=== PATIENT | male | born 1960 | race Hispanic/Latino ===

== ENCOUNTER → 2019-07-12 | Day surgery (SDC) | payer MEDICARE, OTHER ==
--- NOTE | 2019-07-08 15:28 | NUR ---
At time of pre-op appointment when patient was being escorted to lab waiting area. Patient reported dizziness. Wheelchair provided to patient. Offered to patient to go to ER to be checked out. Patient declined at this time. Patient stated he felt better after sitting in the wheelchair.
[2019-07-08 15:40] LABS: BASOPHILS % 0.5 % (0.0-1.0); EOSINOPHILS # (AUTO) 0.1 (0.0-0.4); EOSINOPHILS % 1.4 % (0.0-6.0); HEMATOCRIT 48.7 % (38.2-49.6); HEMOGLOBIN 15.7 g/dL (14.0-18.0); LYMPHOCYTES # (AUTO) 2.8 (1.0-3.2); LYMPHOCYTES % 34.1 % (18.0-39.1); MEAN CORPUSCULAR HEMOGLOBIN 28.8 pg (28-32); MEAN CORPUSCULAR HGB CONC 32.2 g/dL (31-35); MEAN CORPUSCULAR VOLUME 89.2 fL (81-99); MONOCYTES # (AUTO) 0.4 (0.2-0.8); MONOCYTES % 5.3 % (4.4-11.3); NEUTROPHILS # (AUTO) 4.6 (2.1-6.9); NEUTROPHILS % 57.5 % (38.7-80.0); PLATELET COUNT 182 x10e3/uL (140-360); RED BLOOD COUNT 5.46 x10e6/uL (4.3-5.7); RED CELL DISTRIBUTION WIDTH 13.7 % (11.7-14.4)
[2019-07-08 16:00] LABS: ALBUMIN 3.9 g/dL (3.5-5.0); ALBUMIN/GLOBULIN RATIO 1.1 (0.8-2.0); ANION GAP 13.8 mmol/L (8-16); CALCIUM 9.9 mg/dL (8.4-10.2); CREATININE, SERUM 1.27 mg/dL (0.72-1.25); POTASSIUM 4.8 mmol/L (3.5-5.1)
--- NOTE | 2019-07-11 14:30 | NUR ---
Dr. Bergeron notified of creatinine 1.27, eGFR 58 and glucose 365. no new orders at this time.
[2019-07-12] VITALS (13 sets, daily range): BP systolic 102–155; BP diastolic 60–82
[~2019-07-12] VITALS: Ht 180.3 cm; Wt 127.9 kg
[~2019-07-12] MED LIST: ASPIR 8181 MG PO; ASPIRIN 325 MG TAB ONE; BIVALRIUDIN 250 MG/VIAL VIAL IV ONE; BUPROPION HCL100 MG PO; FENTANYL CITRATE/PF 100MCG/2 ML INJ ONE; FLUDROCORTISON0.1 MG PO; GABAPENTIN400 MG PO; HEPARIN SOD (PORCINE) 1000 UNIT/ML 30ML ONE; HEPARIN SOD/SOD CHLORIDE 2,000 ML ONE; HUMULIN-R100 UNITS/ SC; IOPAMIDOL 370 MG/ML 200 ML INFUS..BTL INJ ONE; LEVOTHYROXINE75 MCG PO; LIDOCAINE HCL 2% LOCAL 20 ML VIAL ONE; LISINOPRIL10 MG PO; METFORMIN HCL500 M2 PO; METOPROLOL SUCC25 MG PO; MIDAZOLAM HCL 2 MG/2 ML VIAL ONE; MIDODRINE HCL2.5 MG PO; MULTI-VITAMIN1 EACH PO; NITROGLYCERIN/D5W 200 MCG/ML 250 ML ONE; NOVOLIN N100 UNIT/1 SC; OMEGA 3 FISH O1 EACH PO; ONDANSETRON PO; PRASUGREL 10 MG TAB ONE; SERTRALINE HCL100 MG PO; SODIUM CHLORIDE 0.9% 1000ML 0 ML ONE; SODIUM CHLORIDE 0.9% 1000ML 1,000 ML ONE; SODIUM CHLORIDE 0.9% 50ML 50 ML ONE; TEMAZEPAM15 MG PO; VERAPAMIL HCL 2.5 MG/ML 2 ML VIAL ONE; VITAMIN B COMP1 EAC1 PO
--- OUTSIDE RECORDS SUMMARY | 2019-07-12 10:13 | XMS REPORT | Summary of Care ---
Author Author Joya Alejo, Destiny Lentz Unknown Address Unknown Phone Unavailable Care Team Providers Care Pyridine Recovery Operator Name Role Phone JENNIFER Gutierrez, JOSE ANTONIO Unavailable Unavailable JUSTUS Gutierrez, KRISHNA Unavailable Unavailable JUAN Gutierrez, SURYA Unavailable Unavailable KRISTAL LAGUNAS [place], [place] BARNETT Unavailable Unavailable JENNIFER LAGUNAS [place], JOSE ANTONIO SERRANO Unavailable Unavailable JUAN LAGUNAS, SURYA Chandler Unavailable Unavailable Tahir LAGUNAS, Cristiana Unavailable Unavailable UMANG LAGUNAS, MARIETTA ANGUIANO Unavailable Unavailable Unavailable Unavailable Functional Status Name Dates Details Functional status health issues are not documented Status: Name Dates Details Cognitive status health issues are not documented Status: Problems Name Dates Details Neuropathy involving both lower extremities (356.9, G57.93) Status: Active Carpal tunnel syndrome of right wrist (354.0, G56.01) Status: Active Shoulder pain (719.41, M25.519) Status: Active Carpal tunnel syndrome of left wrist (354.0, G56.02) Status: Active Medications Name Dates Details Metoprolol Tartrate 50 MG Oral Tablet Active Cyclobenzaprine HCl TABS * Refills: 0 Active Gabapentin CAPS * Refills: 0 Active Isosorbide Dinitrate SUBL * Refills: 0 Active Ondansetron HCl - 8 MG Oral Tablet TAKE 1 TABLET Every twelve hours * Quantity: 15 Refills: 0 SURYA MARTINEZ M.D. * Start : 10-Sep-2018 Active Colace 100 MG Oral Capsule TAKE 1 CAPSULE 3 TIMES DAILY. * Quantity: 45 Refills: 0 SURYA MARTINEZ M.D. * Start : 10-Sep-2018 Active Meloxicam 15 MG Oral Tablet TAKE 1 TABLET DAILY NEEDED. * Quantity: 30 Refills: 0 JOSE ANTONIO RODRIGUEZ M.D. * Start : 23-Sep-2018 Active Diclofenac Sodium 1 % Transdermal Gel APPLY TO LOWER EXTREMITIES, 4 GM OF GEL TO AFFECTED AREA 4 TIMES DAILY. DO NOT APPLY MORE THAN 16 GM DAILY TO ANY ONE AFFECTED JOINT. * Quantity: 1 Refills: 1 JENNIFERJOSE ANTONIO Chandler M.D. * Start : 23-Sep-2018 Active 100 GM Tube Sulfamethoxazole-Trimethoprim 800-160 MG Oral Tablet TAKE 1 TABLET TWICE DAILY * Quantity: 10 Refills: 0 JUAN GutierrezSURYA * Start : 30-Sep-2018 Active Ondansetron HCl - 8 MG Oral Tablet TAKE 1 TABLET Every twelve hours * Quantity: 15 Refills: 0 JUAN GutierrezSURYA * Start : 10-Dec-2018 Active Colace 100 MG Oral Capsule TAKE 1 CAPSULE 3 TIMES DAILY. * Quantity: 45 Refills: 0 JUAN GutierrezSURYA * Start : 10-Dec-2018 Active Meloxicam 7.5 MG Oral Tablet TAKE 1 TABLET TWICE DAILY NEEDED. * Quantity: 60 Refills: 6 JOSE ANTONIO RODRIGUEZ M.D. * Start : 06-Jan-2019 Active Allergies and Adverse Reactions Name Dates Details No Known Drug Allergies (Allergy) Status: Active Past Medical History Name Dates Details History of arthritis (V13.4, Z87.39) Status: Resolved History of back pain (V13.59, Z87.39) Status: Resolved History of depression (V11.8, Z86.59) Status: Resolved History of hypertension (V12.59, Z86.79) Status: Resolved Procedures Procedure Dates Details Post Op Promise 29 Survey Date: 30-Dec-2018 Pre Op Promise 29 Survey Date: 06-Dec-2018 History of Amputation Completed Immunization Name Dates Details Immunizations not documented Family History Name Dates Details Family history of Heart trouble (429.9, I51.9) Comments: Family History Status: Active Family history of diabetes mellitus (V18.0, Z83.3) Comments: Family History Status: Active Family history of hypertension (V17.49, Z82.49) Comments: Family History Status: Active Social History Name Dates Details Unknown if ever smoked Vital Signs Date Test Result Details No Known Vitals to report Results Date Description Value Details Results not documented Plan of Care Name Dates Details Planned Observations Planned Goals not documented Planned Encounters Appointment; CRISTIANA PALENCIA M.D. On: 08-Feb-2019 8:45 Appointment; JOSE ANTONIO RODRIGUEZ M.D. On: 15-Feb-2019 10:15 Instructions Name Dates Details Instructions not documented Encounters Appointment; TOYA CARY M.D. Encounter Diagnosis: Problem not documented On: 01-Dec-2017 11:30 Appointment; CRISTIANA PALENCIA M.D. Encounter Diagnosis: Problem not documented On: 08-Dec-2017 7:45 Appointment; CRISTIANA PALENCIA M.D. Encounter Diagnosis: Problem not documented On: 23-Dec-2017 8:30 Appointment; CRISTIANA PALENCIA M.D. Encounter Diagnosis: Problem not documented On: 10-Feb-2018 8:30 Appointment; CRISTIANA PALENCIA M.D. Encounter Diagnosis: Problem not documented On: 03-Mar-2018 11:30 Appointment; CRISTIANA PALENCIA M.D. Encounter Diagnosis: Problem not documented On: 31-Mar-2018 8:45 Appointment; CRISTIANA PALENCIA M.D. Encounter Diagnosis: Problem not documented On: 02-Jun-2018 8:15 Appointment; SURYA MARTINEZ M.D. Encounter Diagnosis: Problem not documented On: 03-Aug-2018 11:00 Appointment; SURYA MARTINEZ M.D. Encounter Diagnosis: Problem not documented On: 31-Aug-2018 10:30 Appointment; SURYA MARTINEZ M.D. Encounter Diagnosis: Problem not documented On: 13-Sep-2018 9:00 Appointment; JOSE ANTONIO RODRIGUEZ M.D. Encounter Diagnosis: Problem not documented On: 23-Sep-2018 9:45 Appointment; SURYA MARTINEZ M.D. Encounter Diagnosis: Problem not documented On: 28-Sep-2018 8:30 Appointment; SURYA MARTINEZ M.D. Encounter Diagnosis: Problem not documented On: 30-Sep-2018 10:30 Appointment; SURYA MARTINEZ M.D. Encounter Diagnosis: Problem not documented On: 19-Oct-2018 8:30 Appointment; JOSE ANTONIO RODRIGUEZ M.D. Encounter Diagnosis: Problem not documented On: 21-Oct-2018 8:45 Appointment; JOSE ANTONIO RODRIGUEZ M.D. Encounter Diagnosis: Problem not documented On: 26-Oct-2018 9:15 Appointment; SURYA MARTINEZ M.D. Encounter Diagnosis: Problem not documented On: 07-Dec-2018 10:30 Appointment; CRISTIANA PALENCIA M.D. Encounter Diagnosis: Problem not documented On: 07-Dec-2018 13:30 Appointment; SURYA MARTINEZ M.D. Encounter Diagnosis: Problem not documented On: 13-Dec-2018 13:00 Appointment; SURYA MARTINEZ M.D. Encounter Diagnosis: Problem not documented On: 28-Dec-2018 8:30 Appointment; JOSE ANTONIO RODRIGUEZ M.D. Encounter Diagnosis: Problem not documented On: 28-Dec-2018 8:45 Appointment; JOSE ANTONIO RODRIGUEZ M.D. Encounter Diagnosis: Problem not documented On: 06-Jan-2019 10:45 Appointment; SURYA MARTINEZ M.D. Encounter Diagnosis: Problem not documented On: 11-Jan-2019 8:45 Appointment; KRISHNA JEROME M.D. Encounter Diagnosis: Problem not documented On: 28-Jan-2019 8:15
--- NOTE | 2019-07-12 14:00 | NUR ---
1400 Bedside report received from UZIEL Cardona. Alert oriented and appropriate, PERRLA, respirations even and unlabored to room air. Pulses x4 extremities equal and strong. Pedal pulses PT/DP x4 Cap fill brisk < 3 sec. Skin warm and dry integrity appears D/I. IV 20g to left hand at 100cchr via dial a flow. Presents healthy w/o s/s of infiltration or complaint. Abdomen soft and supple. pt offered toileting, denies need to urinate or defecate. No personal affects with patient. Family Amy Significant other . Pt and family verbalizes understanding of POC. Currently w/o complaint of pain or need. Fix Circumflex1, Radial approach. No gross issues pain,pallor,pressure or dysrhythmia.veor/uziel
--- NOTE | 2019-07-12 17:00 | NUR ---
1700p RADIAL Compression removal: Initial Cuff volume 11 cc 1700 -2cc Removed No hematoma/bleeding noted with normal neurovascular function. 1715 -2 cc Removed No hematoma/ bleeding noted with normal neurovascular function. 1730 -2 cc Removed No hematoma/bleeding noted with normal neurovascular function. 1745 -2 cc Removed No hematoma/ bleeding noted with normal neurovascular function. Air removal completed. 1745 ready for dc Stasis achieved sterile 2x2,Tegaderm, Coban dressing No hematoma, bleeding noted with normal neurovascular function. Wrist splint in place. Pt instructed on POC. Ds/Rn
--- NOTE | 2019-07-12 18:00 | NUR ---
1800p Pt meets DC criteria. rt TR band assessed for s/s of complication and presence of hematoma. warm, dry, no discolor, and pulses present. IV removed from left hand. Distal tip appears intact. VS WNL. Pt denies pain, sob, or need at this time. Family at Amy at bedside. Review of discharge paperwork and follow up instructions. verbalized understanding. Pt to wheelchair and transported to front of hospital. Transferred to private vehicle under own strength w/o incident with DC paperwork in hand. - ds/rn
--- NOTE | 2019-07-14 06:38 | Operative Report ---
DATE OF PROCEDURE: 07/12/2019 SURGEON: Shemar Bergeron MD CARDIAC DATA ENTRY REPRESENTATIVE PROCEDURE NOTE INDICATION: 1. Coronary artery disease. 2. Abnormal stress test. PROCEDURES PERFORMED: 1. Left heart catheterization, selective coronary angiography, left ventriculography. 2. PTCA and stent placement to the mid circumflex artery. 3. Deployment of right wrist TR band. COMPLICATIONS: None. RECOMMENDATIONS: Dual antiplatelet therapy for at least 6 months. DESCRIPTION OF PROCEDURE: Access was obtained in the right radial artery. A 5-Tajik sheath was placed. The patient received Angiomax for anticoagulation. Coronary angiography demonstrated 50% mid left anterior descending artery stenosis, 70% mid circumflex stenosis, 50% mid right coronary artery stenosis. LV end-diastolic pressure of 10. LV ejection fraction 60%. A decision was made to intervene on the circumflex artery. The left main was cannulated using an EBU 3.75, 5-Tajik guiding catheter, short run-through wire was advanced across the lesion for support. Primary stent 3.5 x 18 mm Resolute [place] deployed at 16 atmospheres. Excellent end result, less than 10% residual stenosis CHNI-3 flow. No complications. Right wrist TR band was applied. The patient discharged home same day. MD SEKOU Tanner/GAMAL /[id number]
== END | disposition home or self-care (01) ==
LOC: CATH LAB 10:06
PROVIDERS: ATTEND Internal Medicine Interventional Cardiology
DX: I25.118 Atherosclerotic heart disease of native coronary artery with other forms of angina pectoris (principal); I10 Essential (primary) hypertension; Z01.812 Encounter for preprocedural laboratory examination; Z79.4 Long term (current) use of insulin; Z79.84 Long term (current) use of oral hypoglycemic drugs; Z79.82 Long term (current) use of aspirin
CPT/HCPCS: 93458; C9600; 36415; 80053; 85025; 92928; C1769; C1874; C1887; J0583; J1644; J2001; J2250; J3010; J7030; Q9967